=== PATIENT | female | born 1960 | race Caucasian/White ===

== ENCOUNTER 2022-11-01 14:58 | Outpatient (AMB) | payer OTHER, SELFPAY ==
--- NOTE | 2022-11-01 15:01 | A.OFFVIS_ITS ---
Intake Vital Signs 11/01/22 15:02 Height 5 ft 2 in Weight 152 lb 1.903 oz BMI 27.8 BP 104/77 Blood Pressure Location Lt brachial Position Sitting Pulse 104 H Intake Visit Reasons: Colonoscopy Screening Intake Note: Carmen presents in the office as a colonoscopy screening. CC: She is due and has family hx of colon cancer. Lately she has been dealing with GERD. She has been having belching and burning sensation. She takes omeprazole PRN and wants to ween off of it. Healthcare Administrative Assistant Required: No Allergies No Known Allergies Allergy (Verified 11/01/22 15:03) HPI Colonoscopy Screening HPI Details 62 year old? female here today for pre c olonoscopy screening.? Patient was sent to us by her PCP.? Patient had colonoscopy in 2018 with multiple hyperplastic polyp and 1 tubular adenoma in her rectum. Patient also had upper endoscopy. In the past few months patient had increase in epigastric symptoms of dyspepsia and dysphagia. Patient denies any gastrointestinal symptoms in the past or at present.? Denies any personal or family history of gastrointestinal disease, colon polyps, or cancer.? Denies history of difficulty with sedation or anesthesia in the past.? Patient was diagnosed with sleep apnea and is using dental sleep to help her during the night.? Denies any history of cardiac, renal, pulmonary, or hepatic disease.?? No history of infectious? diseases like hepatitis A, B, C, HIV or tuberculosis.? Patient is not on any anticoagulation therapy. PFSH Surgical History (Updated 11/01/22 @ 15:03 by CLAUDINE Carter) Hx of colonoscopy History of esophagogastroduodenoscopy (EGD) Family History (Updated 11/01/22 @ 15:03 by CLAUDINE Carter) Mother Colon cancer Social History (Updated 11/01/22 @ 15:03 by CLAUDINE Carter) Alcohol intake: current Alcohol intake frequency: does not drink Patient Tobacco Use Status: Never used Tobacco Review of Systems Const Denies weight gain and Denies weight loss ENT Reports no additional complaints, Denies dysphagia and Denies odynophagia Card Reports no additional complaints Resp Reports no additional complaints GI Denies abdominal pain, Reports belching, Denies melena, Denies bloating, Denies change in bowel habits, Denies dysphagia, Denies excessive flatus, Denies dyspepsia, Reports heartburn, Denies diarrhea, Denies loose stools, Denies nausea, Denies odynophagia and Denies vomiting Reports no additional complaints Musc Reports no additional complaints Neuro Reports no additional complaints Psych Reports no additional complaints Endo Reports no additional complaints Physical Exam Vital Signs: Last Vital Signs Pulse 104 H 11/01/22 15:02 BP 104/77 11/01/22 15:02 BMI result Body Mass Index 27.8 Const General: healthy appearing, no acute distress and well developed Nutritional Appearance: well nourished Orientation/consciousness: patient oriented x3 HEENT Head: Yes normal to inspection, Yes normocephalic and Yes atraumatic Face and sinus: Yes normal facial exam Mouth: Normal oral and palatal mucosa present Throat: Yes posterior oropharynx normal, Yes tonsils normal and Yes uvula midline Eyes General: appearance normal, both eyes and all related structures Neck Neck: Yes normal visual inspection, Yes full ROM and Yes trachea midline Thyroid: Thyroid normal Resp Effort & Inspection: normal respiratory effort, able to speak in complete sentences, no tracheal deviation and symmetric chest movement Auscultation: clear to auscultation bilaterally Cardio Rate: regular rate Heart sounds: S1 normal heart sound present and S2 normal heart sound present GI Inspection: Yes normal to inspection and No distended Palpation (GI): Soft to palpation, not firm, nontender and No hepatosplenomegaly present Auscultation: normal bowel sounds General: Yes no CVA tenderness Back/Spine/Pelvis Back: no CVA tenderness Skin General skin exam: elasticity normal, turgor normal and dry skin Neuro General: patient oriented x3 Psych Appearance: grossly normal Mental Status: mental status grossly normal Speech and movement: Normal speech and movement present Assessment & Plan Assessment & Plan (1) GERD (gastroesophageal reflux disease): Code(s): K21.9 - Gastro-esophageal reflux disease without esophagitis Qualifiers: Esophagitis presence: esophagitis presence not specified Qualified Code(s): K21.9 - Gastro-esophageal reflux disease without esophagitis Plan: Patient can continue omeprazole. Discussed with patient avoiding dietary triggers and late night snacking. Staying upright for minimum 3 hours after meals discussed with patient. Patient will be sent for upper endoscopy to rule out gastritis, esophagitis, Schatzki ring, Potter's, H pylori (2) Screen for colon cancer: Code(s): Z12.11 - Encounter for screening for malignant neoplasm of colon Plan: Patient denies any cardiac or respiratory symptoms.? Denies any issues with anesthesia in the past.? Denies any history of sleep apnea.? No history infectious diseases in the past or present.? Not on any anticoagulation therapy.? Patient denies melena, hematochezia, unintentional weight loss or ribbon like stools.? Discussed at length the pre-procedure,? prep, diet & medications as well as what to expect prior, during and after the procedure.?? Stressed the importance of good bowel prep. ?Recommended the use of Vaseline or Calmoseptine OTC & baby wipes with bowel movements to promote comfort.? ?Patient verbalizes understanding and agrees to plan of care.? She was given the opportunity to ask questions and all questions answered.? We will see her after the procedure.? Medications: New bisacodyl (Dulcolax (bisacodyl)) Start taking 2 tablet every night 7 days before the procedure and 1 day before procedure take 2 tablets at noon time followed by MiraLax prep 10 mg (2 x 5 mg) PO BEDTIME 14 tabs 0RF Z12.11 - Encounter for screening for malignant neoplasm of colon polyethylene glycol 3350 (Miralax) As directed by gastroenterology department at [facility] 238 grams PO ONCE 238 grams 0RF Z12.11 - Encounter for screening for malignant neoplasm of colon Coding Level of Care Code New Pt Level 3 (10363) Diagnoses Gastroesophageal reflux disease, unspecified whether esophagitis present K21.9 Esophagitis presence: esophagitis presence not specified Screen for colon cancer Z12.11 Time Spent (min) 40 Comment 30 minutes spent with patient and additional 10 minutes spent reviewing her records
[2022-11-01 15:02] VITALS: BP 104/77; PULSE 104; BMI 27.8
== END 2022-11-01 15:44 | disposition home or self-care (01) ==
PROVIDERS: PCP Internal Medicine; Visit Provider Nurse Practitioner Family
DX: K21.9 Gastro-esophageal reflux disease without esophagitis (principal); Z12.11 Encounter for screening for malignant neoplasm of colon
CPT/HCPCS: 99203

== ENCOUNTER → 2022-11-01 14:58 | Outpatient (BNVA) | payer OTHER, SELFPAY | PROVIDERS: PCP Internal Medicine; Visit Provider Nurse Practitioner Family ==

== ENCOUNTER 2023-01-06 13:15 | Day surgery (SDC) | payer OTHER, SELFPAY ==
[2022-12-31 14:41] VITALS: BMI 27.8
[2023-01-06 13:49] VITALS: BP 129/86; PULSE 110; RESP 16; TEMP 36.6; O2SAT 98
--- NOTE | 2023-01-06 14:09 | HO.ANESPROP2 ---
FORMERLY [facility] Past Medical History Medical History (Updated 12/31/22 @ 14:37 by Amelia Castro RN) Sleep apnea GERD (gastroesophageal reflux disease) Family History Family History (Updated 11/01/22 @ 15:03 by CLAUDINE Carter) Mother Colon cancer Family history of problems with anesthesia: No Surgical History Surgical History (Updated 12/31/22 @ 14:37 by Amelia Castro RN) Hx of colonoscopy History of esophagogastroduodenoscopy (EGD) History of Problems with Anesthesia: No Social History (Updated 11/01/22 @ 15:03 by CLAUDINE Carter) Alcohol intake: current Alcohol intake frequency: does not drink Patient Tobacco Use Status: Never used Tobacco Use of substances other than those prescribed or required for medical reasons: No Are you DNR?: No Advance Directives: No Advance Directives Information Provided: Yes Meds Allergies Allergy/AdvReac Type Severity Reaction Status Date / Time No Known Allergies Allergy Verified 11/01/22 15:03 Home Medications Medication Instructions Recorded Confirmed Last Taken Type epinephrine 0.3 mg/0.3 mL 0.3 mg IM ONCE PRN 11/01/22 Unknown History injection, auto-injector estradiol 0.05 mg/24 hr semiweekly 1 patch transdermal 11/01/22 Unknown History transdermal patch (Lyllana) finasteride 5 mg tablet 2.5 mg PO DAILY 11/01/22 12/31/22 Unknown History omeprazole 20 mg capsule,delayed 20 mg PO DAILY 11/01/22 12/31/22 Unknown History release progesterone micronized 100 mg 100 mg PO DAILY 11/01/22 12/31/22 Unknown History capsule Exam Height,Weight and Vital Signs: Height 5 ft 2 in Weight 68.946 kg Last Vital Signs Temp 97.8 F 01/06/23 13:49 Pulse 110 H 01/06/23 13:49 Resp 16 01/06/23 13:49 BP 129/86 01/06/23 13:49 Pulse Ox 98 01/06/23 13:49 O2 Del Method Room Air 01/06/23 13:49 Airway Mallampati Class: II TM Dist: >3cm Neck ROM: Full Heart: rrr Lungs: cta Assessment and Plan Assessment Anesthesia Assessment: Anesthesia Plan Discussed and Chart Reviewed Final Anesthetic Review Family History of Problems with Anesthesia: No History of Problems with Anesthesia: No NPO: Yes ASA Class: II Final Preanesthetic Review: No Changes in Pt Med Stat, Meds/Allgs Chart Reviewed and Consent Obtained/Reviewed Patient Risk: Intermediate Procedure Risk: Intermediate Anesthetic Plan Anesthetic Plan: MAC: Disposition: Standard PACU
--- NOTE | 2023-01-06 14:12 | MHC.SHP ---
Pre-Procedural Eval Section A Date of Service: 01/06/23 Section B Chief Complaint: FU of polyps, GERD, dyspepsia, dysphagia Relevant Family History (Specify if Yes): Yes Relevant Social History: None Present Medications: see Short Stay Collaborative assessment Medical History: Significant History (GERD, sleep apnea) History of Previous Operations: Relevant previous surgery/procedure and date(s) (Hx of colonoscopy History of esophagogastroduodenoscopy (EGD)) Allergies: Allergies Allergy/AdvReac Type Severity Reaction Status Date / Time No Known Allergies Allergy Verified 11/01/22 15:03 Review of Systems Sugical H&P ROS: Negative: Constitution, Cardiovascular and Respiratory and Yes, Specify: Gastrointestinal (GERD) Exam Surgical H&P Exam: Normal: Heart, Normal: Lungs, Normal: Extremities and Normal: Abdomen Plan Diagnosis/Plan: Unchanged I have reviewed the history and physical and performed a pertinent physical examination on my patient. No changes have occurred unless specified. Time Spent With Patient Time: Total time managing care of this patient today ____ minutes.
--- NOTE | 2023-01-06 14:18 | W.PM.OPN ---
Operative Note Operative Note Date of Service: 01/06/23 Narrative: FLEXIBLE TRANSORAL UPPER GASTROINTESTINAL ENDOSCOPY WITH BIOPSIES AND COLONOSCOPY TILL CECUM WITH Pre-op diagnosis: surveillance for colon polyps, FH of colon cancer (Mom in her 80's) and polyps (all eight of her siblings have polyps) GERD, dyspepsia Post-op diagnosis: Gastric Polyp, Esophagitis, Gastritis, Esophageal Nodules, Colon Polyps, Diverticulosis, Hemorrhoids? Endoscopist:? Amadou Saba MD Anesthesia:?MAC UPPER ENDOSCOPY Consent: Indications for the procedure and potential complications of bleeding, perforation, reaction to medications and missed diagnosis were discussed with the patient and informed consent was obtained. Instrument: Olympus GIF H 190 mid size upper endoscope Monitoring: Vital signs and clinical assessment, continuous EKG monitoring, Pulse oximetry, Carbon Dioxide monitoring and blood pressure monitoring were done throughout the procedure. Procedure: The patient was placed in the left lateral decubitis position and pre-procedure medications were administered and a bite block was placed. The endoscope was inserted into the mouth and advanced under direct vision to the third part of duodenum. A careful inspection was made as the upper endoscope was withdrawn including a retroflexed examination of the proximal stomach; Findings and interventions are described below. Findings: Larynx: Normal Esophagus: Scattered 4-5 mm nodules in the proximal esophagus with white exudate - biopsied and brushings were obtained. GE junction at 32 cms, small hiatal hernia 32 to 35 cms. No esophagitis or Potter's. Stomach: Mild gastric erythema. Biopsies were obtained. A few 2-3 mm benign appearing polyps in the gastric body - biopsied. Grade 2 flap valve on retroflexed examination of the cardia. Duodenum: Normal bulb and descending duodenum. Biopsies were obtained from 3rd part of duodenum to check for celiac sprue. Intervention: Biopsies as noted above COLONOSCOPY PROCEDURE NOTE Consent: Indications for the procedure and potential complications of bleeding, perforation, reaction to medications and missed diagnosis were discussed with the patient and informed consent was obtained. Instrument: Olympus CF H 190 L variable stiffness adult colonoscope Monitoring: Vital signs and clinical assessment, intermittent blood pressure monitoring, continuous EKG monitoring, Pulse oximetry and Carbon Dioxide monitoring were done throughout the procedure. Colon withdrawl time was 29 minutes. Procedure: The patient was placed in the left lateral decubitis position and pre-procedure medications were administered. After a digital rectal examination of the ano-rectum, the video colonoscope was inserted into the rectum and advanced through the colon to the cecum. The colonoscope was slowly withdrawn in a retrograde panoramic fashion and the colon mucosa was carefully examined including a retroflexed view of the rectum. Findings and interventions are described below. Procedure Difficulty: Colon was long and tortuous and there was some loop formation Findings: Terminal Ileum: Not evaluated Cecum: Normal Ascending Colon: A 3-4 mm sessile polyp in the distal AC - removed with a cold biopsy Scattered moderate diverticulosis throughout the colon Transverse Colon: Two 8 to 10 mm sessile polyps - removed with a cold snare Scattered moderate diverticulosis throughout the colon Descending Colon: Moderate diverticulosis Sigmoid Colon: A 15 to 18 mm flat polyp at 25 cms. Polyp was raised with 5 cc of Eleview and removed with a hot snare. Polypectomy site was closed with 1 hemoclip and marked by Nhi ink. Moderate diverticulosis Rectum: Two 4-5 mm sessile polyps in the proximal rectum - removed with a cold snare Ano-rectum: Moderate internal hemorrhoids Colon preparation: Good after copious irrigation Impression and Post Procedure Diagnosis: Endoscopy Findings: ESOPHAGUS: Scattered 4-5 mm nodules in the proximal esophagus with white exudate - biopsied and brushings were obtained. GE junction at 32 cms, small hiatal hernia 32 to 35 cms. STOMACH: Mild gastric erythema. Biopsies were obtained. A few 2-3 mm benign appearing polyps in the gastric body - biopsied. Colonoscopy Findings: Six small to medium sized polyps removed Moderate diverticulosis seen in the entire colon Moderate hemorrhoids on retroflexed exam. Plan: Await pathology results Patient has an appointment on 01/22/23 in the GI Clinic with Olesya Syed FNP-BC. Repeat Colonoscopy interval based on path results - in 3-5 years if polyps are adenomatous and due to a hx of adenomatous colon polyps (adult colonoscope for future colonoscopies) Above findings were reviewed with the patient and colon polyps and diverticulosis handouts were given in the discharge area
[2023-01-06 15:30] VITALS: BP 104/59; PULSE 92; RESP 16; TEMP 36.3; O2SAT 97
[2023-01-06 15:45] VITALS: BP 115/78; PULSE 90; RESP 14; O2SAT 98
[2023-01-06 16:00] VITALS: BP 113/76; PULSE 89; RESP 16; O2SAT 98
[2023-01-06 16:15] VITALS: BP 115/73; PULSE 79; RESP 16; TEMP 36.4; O2SAT 98
== END 2023-01-06 16:38 | disposition home or self-care (01) ==
PROVIDERS: PCP Physician Assistant; Visit Provider Internal Medicine Gastroenterology
PROC: (CPT 45385; principal; 2023-01-06 14:50)
DX: Z12.11 Encounter for screening for malignant neoplasm of colon (principal); Z86.010 Personal history of colon polyps; D12.2 Benign neoplasm of ascending colon; D12.3 Benign neoplasm of transverse colon; D12.8 Benign neoplasm of rectum; K63.5 Polyp of colon; K57.30 Diverticulosis of large intestine without perforation or abscess without bleeding; K64.8 Other hemorrhoids; K21.9 Gastro-esophageal reflux disease without esophagitis; K29.50 Unspecified chronic gastritis without bleeding; R13.10 Dysphagia, unspecified; K20.80 Other esophagitis without bleeding; K31.7 Polyp of stomach and duodenum; K22.89 Other specified disease of esophagus; K44.9 Diaphragmatic hernia without obstruction or gangrene; G47.33 Obstructive sleep apnea (adult) (pediatric); Z79.899 Other long term (current) drug therapy
CPT/HCPCS: 45385; 45380; 45381; 43239; 87102; 87106; 88305; 88342; J2704

== ENCOUNTER → 2023-01-06 13:15 | Outpatient (BNV) | payer OTHER, SELFPAY | PROVIDERS: PCP Physician Assistant; Visit Provider Internal Medicine Gastroenterology | DX: Z12.11 Encounter for screening for malignant neoplasm of colon (principal); K63.5 Polyp of colon; K57.90 Diverticulosis of intestine, part unspecified, without perforation or abscess without bleeding; K64.8 Other hemorrhoids; K31.89 Other diseases of stomach and duodenum; K22.81 Esophageal polyp; K31.7 Polyp of stomach and duodenum | CPT/HCPCS: 43239; 45380; 45381; 45385 ==

== ENCOUNTER 2023-01-22 10:32 | Outpatient (AMB) | payer OTHER, SELFPAY ==
[2023-01-22 10:35] VITALS: BP 98/65; PULSE 69; BMI 28.9
--- NOTE | 2023-01-22 10:35 | MHC.OFFVIS ---
Intake Vital Signs 01/22/23 10:35 Height 5 ft 2 in Weight 158 lb 4.67 oz BMI 28.9 BP 98/65 Blood Pressure Location Rt brachial Position Sitting Pulse 69 Pulse Source Pulse Oximeter Intake Visit Reasons: s/p egd/colon Jayant Intake Note: Pt presents to the office today for a s/p egd,colonoscopy. Pt denies any GI concerns at this time. Allergies No Known Allergies Allergy (Verified 01/22/23 10:38) HPI s/p egd/colon Jayant HPI Details LAST VISIT GERD (gastroesophageal reflux disease) Patient can continue omeprazole. Discussed with patient avoiding dietary triggers and late night snacking. Staying upright for minimum 3 hours after meals discussed with patient. Patient will be sent for upper endoscopy to rule out gastritis, esophagitis, Schatzki ring, Potter's, H pylori Screen for colon cancer Patient denies any cardiac or respiratory symptoms.? Denies any issues with anesthesia in the past.? Denies any history of sleep apnea.? No history infectious diseases in the past or present.? Not on any anticoagulation therapy.? Patient denies melena, hematochezia, unintentional weight loss or ribbon like stools.? Discussed at length the pre-procedure,? prep, diet & medications as well as what to expect prior, during and after the procedure.?? Stressed the importance of good bowel prep. ?Recommended the use of Vaseline or Calmoseptine OTC & baby wipes with bowel movements to promote comfort.? ?Patient verbalizes understanding and agrees to plan of care.? She was given the opportunity to ask questions and all questions answered.? We will see her after the procedure.? Plan Medications New bisacodyl (Dulcolax (bisacodyl)) Start taking 2 tablet every night 7 days before the procedure and 1 day before procedure take 2 tablets at noon time followed by MiraLax prep 10 mg (2 x 5 mg) PO BEDTIME 14 tabs 0RF Z12.11 polyethylene glycol 3350 (Miralax) As directed by gastroenterology department at [facility] 238 grams PO ONCE 238 grams 0RF UPPER ENDOSCOPY AND COLONOSCOPY Findings: Larynx: Normal Esophagus: Scattered 4-5 mm nodules in the proximal esophagus with white exudate - biopsied and brushings were obtained. GE junction at 32 cms, small hiatal hernia 32 to 35 cms. No esophagitis or Potter's. Stomach: Mild gastric erythema. Biopsies were obtained. A few 2-3 mm benign appearing polyps in the gastric body - biopsied. Grade 2 flap valve on retroflexed examination of the cardia. Duodenum: Normal bulb and descending duodenum. Biopsies were obtained from 3rd part of duodenum to check for celiac sprue. Intervention: Biopsies as noted above COLONOSCOPY: Procedure Difficulty: Colon was long and tortuous and there was some loop formation Findings: Terminal Ileum: Not evaluated Cecum: Normal Ascending Colon: A 3-4 mm sessile polyp in the distal AC - removed with a cold biopsy Scattered moderate diverticulosis throughout the colon Transverse Colon: Two 8 to 10 mm sessile polyps - removed with a cold snare Scattered moderate diverticulosis throughout the colon Descending Colon: Moderate diverticulosis Sigmoid Colon: A 15 to 18 mm flat polyp at 25 cms. Polyp was raised with 5 cc of Eleview and removed with a hot snare. Polypectomy site was closed with 1 hemoclip and marked by Nhi ink. Moderate diverticulosis Rectum: Two 4-5 mm sessile polyps in the proximal rectum - removed with a cold snare Ano-rectum: Moderate internal hemorrhoids Colon preparation: Good after copious irrigation Impression and Post Procedure Diagnosis: Endoscopy Findings: ESOPHAGUS: Scattered 4-5 mm nodules in the proximal esophagus with white exudate - biopsied and brushings were obtained. GE junction at 32 cms, small hiatal hernia 32 to 35 cms. STOMACH: Mild gastric erythema. Biopsies were obtained. A few 2-3 mm benign appearing polyps in the gastric body - biopsied. Colonoscopy Findings: Six small to medium sized polyps removed Moderate diverticulosis seen in the entire colon Moderate hemorrhoids on retroflexed exam. Plan: Repeat Colonoscopy interval based on path results - in 3-5 years if polyps are adenomatous and due to a hx of adenomatous colon polyps (adult colonoscope for future colonoscopies) PATHOLOGY RESULTS Diagnosis A. Small bowel, biopsy: Small bowel mucosa with no diagnostic abnormality; preserved villous architecture and no increase in intraepithelial lymphocytes; no evidence of active inflammation, foveolar metaplasia or dysplasia. B. Gastric antrum, biopsy: Mild chronic inactive gastritis; no evidence of H. pylori, intestinal metaplasia or dysplasia. C. Gastric polyp, biopsy: Fundic gland polyp; no evidence of H. pylori, intestinal metaplasia or dysplasia. D. Esophagus, biopsy: Esophageal squamous mucosa with mild reactive changes; no evidence of intraepithelial eosinophils, fungal organisms, intestinal metaplasia, dysplasia or invasive carcinoma. E. Colon, transverse, polypectomy: Tubular adenoma; negative for high-grade epithelial dysplasia/ invasive carcinoma. F. Colon, ascending, polypectomy: Tubular adenoma; negative for high-grade epithelial dysplasia/ invasive carcinoma. G. Colon, sigmoid, polypectomy: Hyperplastic polyp. H. Rectum, polypectomies: Fragments of tubular adenoma; negative for high-grade epithelial dysplasia/ invasive carcinoma TODAY'S VISIT He patient is here today for follow-up and to discuss after endoscopy and colonoscopy results. Patient denies any ill effects from the prep, anesthesia or procedure itself. Patient does report couple days of acid reflux and mild sore throat after the procedure. Patient denies any melena, hematochezia, unintentional weight loss or ribbon like stools. Denies any dyspepsia, dysphagia or odynophagia. Patient reports that she uses omeprazole on as needed basis. Upper endoscopy and colonoscopy results discussed with patient. Five tubular adenoma found without high-grade dysplasia or carcinoma. Patient reports that she has been feeling well COUNT INCLUDES THE [facility] Medical History Sleep apnea GERD (gastroesophageal reflux disease) Surgical History (Updated 01/22/23 @ 10:39 by Grace Rosa MA) Hx of colonoscopy History of esophagogastroduodenoscopy (EGD) Family History Mother Colon cancer Social History Alcohol intake: current Alcohol intake frequency: does not drink Patient Tobacco Use Status: Never used Tobacco Review of Systems Const Denies weight gain and Denies weight loss ENT Reports no additional complaints, Denies dysphagia and Denies odynophagia Card Reports no additional complaints Resp Reports no additional complaints GI Denies abdominal pain, Denies belching, Denies melena, Denies bloating, Denies change in bowel habits, Denies dysphagia, Denies excessive flatus, Denies dyspepsia, Reports heartburn, Denies diarrhea, Denies loose stools, Denies nausea, Denies odynophagia and Denies vomiting Reports no additional complaints Musc Reports no additional complaints Neuro Reports no additional complaints Psych Reports no additional complaints Endo Reports no additional complaints Physical Exam Vital Signs: Last Vital Signs Pulse 69 01/22/23 10:35 BP 98/65 01/22/23 10:35 BMI result Body Mass Index 28.9 Const General: healthy appearing, no acute distress and well developed Nutritional Appearance: well nourished Orientation/consciousness: patient oriented x3 HEENT Head: Yes normal to inspection, Yes normocephalic and Yes atraumatic Face and sinus: Yes normal facial exam Mouth: Normal oral and palatal mucosa present Throat: Yes posterior oropharynx normal, Yes tonsils normal and Yes uvula midline Eyes General: appearance normal, both eyes and all related structures Neck Neck: Yes normal visual inspection, Yes full ROM and Yes trachea midline Thyroid: Thyroid normal Resp Effort & Inspection: normal respiratory effort, able to speak in complete sentences, no tracheal deviation and symmetric chest movement Auscultation: clear to auscultation bilaterally Cardio Rate: regular rate GI Inspection: Yes normal to inspection and No distended Palpation (GI): Soft to palpation, not firm, nontender and No hepatosplenomegaly present Auscultation: normal bowel sounds General: Yes no CVA tenderness Back/Spine/Pelvis Back: no CVA tenderness Skin General skin exam: elasticity normal, turgor normal and dry skin Neuro General: patient oriented x3 Psych Appearance: grossly normal Mental Status: mental status grossly normal Assessment & Plan Assessment & Plan (1) GERD (gastroesophageal reflux disease): Code(s): K21.9 - Gastro-esophageal reflux disease without esophagitis Qualifiers: Esophagitis presence: without esophagitis Qualified Code(s): K21.9 - Gastro-esophageal reflux disease without esophagitis (2) Tubular adenoma: Code(s): D36.9 - Benign neoplasm, unspecified site (3) Diverticulosis: Code(s): K57.90 - Diverticulosis of intestine, part unspecified, without perforation or abscess without bleeding (4) Internal hemorrhoids without complication: Code(s): K64.8 - Other hemorrhoids Plan Patient can use famotidine and needed basis. As mentioned above in HPI patient was found to have tubular adenoma and will return for colorectal screening in 3 years, sooner if clinically necessary. Patient can take MiraLax on as needed basis, probiotic. Patient was encouraged to increase fluid intake and activity to promote better bowel motility. Patient will follow-up in our office on as needed basis. She is agreeable to plan of care and verbalizes understanding of instructions. She was given the opportunity to ask questions and all questions answered. Thank you for allowing me to participate in her care Medications: New famotidine (Pepcid) 20 mg PO BEDTIME 90 tabs 3RF K21.9 - Gastro-esophageal reflux disease without esophagitis hydrocortisone 2.5% (Proctosol HC) 1 appl NV BID-QID PRN 30 grams 2RF hemorrhoids K64.9 - Unspecified hemorrhoids docusate sodium 100 mg PO BEDTIME 90 caps 3RF K59.00 - Constipation, unspecified Coding Level of Care Code Est Pt Level 3 (90848) Diagnoses Gastroesophageal reflux disease without esophagitis K21.9 Esophagitis presence: without esophagitis Tubular adenoma D36.9 Diverticulosis K57.90 Internal hemorrhoids without complication K64.8 Time Spent (min) 30 Comment 20 minutes spent with patient and additional 10 minutes spent reviewing her records
== END 2023-01-22 11:38 | disposition home or self-care (01) ==
PROVIDERS: PCP Internal Medicine; Visit Provider Nurse Practitioner Family
DX: K21.9 Gastro-esophageal reflux disease without esophagitis (principal); D36.9 Benign neoplasm, unspecified site; K57.90 Diverticulosis of intestine, part unspecified, without perforation or abscess without bleeding; K64.8 Other hemorrhoids
CPT/HCPCS: 99213

== ENCOUNTER → 2023-01-22 10:32 | Outpatient (BNVA) | payer OTHER, SELFPAY | PROVIDERS: PCP Internal Medicine; Visit Provider Nurse Practitioner Family ==